=== PATIENT | female | born 1970 | race Caucasian/White ===

== ENCOUNTER 2016-12-02 16:35 | Emergency (ER) | payer OTHER ==
[~2016-12-02] VITALS: Ht 157.5 cm; Wt 81.4 kg
[2016-12-02 18:08] VITALS: BP 139/89
== END 2016-12-02 18:08 | disposition home or self-care (01) ==
LOC: ED 16:35
DX: T78.2XXA Anaphylactic shock, unspecified, initial encounter (principal); Z90.710 Acquired absence of both cervix and uterus; Z85.41 Personal history of malignant neoplasm of cervix uteri
CPT/HCPCS: J0171

== ENCOUNTER 2017-01-21 08:15 | Emergency (ER) | payer OTHER ==
[2017-01-21 09:09] LABS: BASOPHIL % 0.4 % (0-2); PLATELET COUNT 322 x10^3mcL (130-400); RED CELL DISTRIBUTION WIDTH 13.7 % (11.5-14.5)
[2017-01-21 09:19] LABS: CALCIUM 8.8 mg/dL (8.5-10.1); CARBON DIOXIDE 29.2 mmol/L (21-32); CHLORIDE SERUM 103 mmol/L (98-107); CREATININE SERUM 0.8 mg/dL (0.6-1.0); GFR1 > 60 mL/min; GLUCOSE SERUM 101 mg/dL (74-106); POTASSIUM SERUM 3.8 mmol/L (3.5-5.1); SODIUM SERUM 137 mmol/L (136-145)
[2017-01-21 09:23] LABS: ALKALINE PHOSPHATASE 108 U/L (46-116); ALT/SGPT 38 U/L (14-59); AMYLASE 39 U/L (25-115); AST/SGOT 17 U/L (15-37); BILIRUBIN TOTAL 0.68 mg/dL (0.20-1.00); LIPASE 127 IU/L (73-393); TOTAL PROTEIN, SERUM 6.5 g/dL (6.4-8.2)
[2017-01-21 09:26] LABS: ALBUMIN 3.3 g/dL (3.4-5.0)
[2017-01-21 10:53] VITALS: BP 130/74
== END 2017-01-21 10:53 | disposition home or self-care (01) ==
LOC: ED 08:15
PROVIDERS: Emergency Medicine
DX: R10.13 Epigastric pain (principal); R11.0 Nausea; F41.9 Anxiety disorder, unspecified; Z90.710 Acquired absence of both cervix and uterus
CPT/HCPCS: 36415; 83880; J3010; Q0162